=== PATIENT | male | born 1965 | race Caucasian/White ===

== ENCOUNTER → 2021-11-11 | Day surgery (SDC) | payer OTHER ==
[~2021-11-11] VITALS: Ht 177.8 cm; Wt 136.3 kg
[~2021-11-11] MED LIST: CRESTOR10 MG PO; FLONASE ALLER15.8 ML; LOVAZA1 GM PO; MAG-OXIDE 400M400 MG PO; MOBIC7.5 MG PO; OMEPRAZOLE40 MG PO; PRINIVIL20 MG PO; VITAMIN D350 MC5 PO; ZYRTEC10 M3 PO
[2021-11-11 09:59] LABS: HCT 41.2 % (42.0-52.0); HGB 14.4 g/dl (13.2-18.0); MCH 31.2 pg (25.0-31.0); MCV 89.2 fL (78.0-100.0); MPV 10.5 fL (6.0-9.5); RBC 4.62 M/uL (4.70-6.00); RDW 12.1 % (11.5-14.0); WBC 5.4 K/uL (4.0-10.5)
[2021-11-11 10:25] LABS: ALBUMIN 4.5 g/dL (3.4-5.0); BILIRUBIN - TOTAL 0.7 mg/dL (0.2-1.0); BUN/CREAT RATIO (CALC) 16.8 RATIO; CREATININE 0.95 mg/dL (0.67-1.17); GLOBULIN (CALCULATION) 3.3 g/dL; POTASSIUM 4.5 mmol/L (3.5-5.1); TOTAL PROTEIN 7.8 g/dL (6.4-8.2)
== END | disposition home or self-care (01) ==
LOC: FAS 10-21 09:00
PROVIDERS: Surgery
DX: Z12.11 Encounter for screening for malignant neoplasm of colon (principal); D12.0 Benign neoplasm of cecum; D12.5 Benign neoplasm of sigmoid colon; Z86.010 Personal history of colon polyps; I10 Essential (primary) hypertension; G47.30 Sleep apnea, unspecified; Z99.89 Dependence on other enabling machines and devices; Z79.899 Other long term (current) drug therapy
CPT/HCPCS: 36415; 80053; J1610; J2704; J7120